=== PATIENT | female | born 1995 | race Caucasian/White ===

== ENCOUNTER 2016-10-15 18:20 | Emergency (ER) | payer BC ==
[~2016-10-15] VITALS: Ht 154.9 cm; Wt 49.2 kg
[~2016-10-15 18:20] MED LIST: ATARAX,VISTARIL25 MG PO; AUGMENTIN875 MG PO; DEPO-PROVER150 MG/ML IM; DUEXIS 800-26.1 EACH PO; FIORICET 50-301 EACH PO; MACROBID100 MG PO; MOTRIN400 MG PO; NAPROXEN500 MG PO; PREDNISONE20 MG PO; REGLAN10 MG PO; ZANTAC300 MG PO; ZOFRAN4 MG PO
[2016-10-15 21:30] VITALS: BP 128/80
== END 2016-10-15 21:32 | disposition home or self-care (01) ==
LOC: EME 18:20 → EXP 18:20
DX: G43.909 Migraine, unspecified, not intractable, without status migrainosus (principal)
CPT/HCPCS: 99281; 99284; J1100; J1885; J2405; J3010; J7030

== ENCOUNTER 2017-04-24 17:36 | Emergency (ER) | payer BC ==
[~2017-04-24] VITALS: Ht 154.9 cm; Wt 50.4 kg
[2017-04-24 21:17] VITALS: BP 114/78
== END 2017-04-24 21:19 | disposition home or self-care (01) ==
LOC: EME 17:36
DX: G43.909 Migraine, unspecified, not intractable, without status migrainosus (principal); M54.2 Cervicalgia; F17.200 Nicotine dependence, unspecified, uncomplicated
CPT/HCPCS: 99281; 99284; J1885; J2765; J7030

== ENCOUNTER 2017-12-07 18:47 | Emergency (ER) | payer BC ==
[~2017-12-07] VITALS: Ht 154.9 cm; Wt 51.8 kg
[2017-12-07] MEDS ORDERED: FIORICET 50-301 EAC1 PO (20:03)
[2017-12-07 20:18] VITALS: BP 132/82
== END 2017-12-07 20:20 | disposition home or self-care (01) ==
LOC: EME 18:47
DX: G43.909 Migraine, unspecified, not intractable, without status migrainosus (principal); E06.3 Autoimmune thyroiditis; F17.200 Nicotine dependence, unspecified, uncomplicated
CPT/HCPCS: 99281; 99284; J0780; J1885; J7030